=== PATIENT | female | born 2000 | race Caucasian/White ===

== ENCOUNTER 2023-10-17 11:19 | Emergency (ER) | payer BC, SELFPAY ==
[2023-10-17 11:23] VITALS: BP 132/90
--- NOTE | 2023-10-17 12:26 | ED.GENMED ---
History of Present Illness
General
Chief Complaint: Chest Pain
Source: patient
Exam Limitations: none
Time Seen by Provider: 10/17/23 11:55
Nursing documentation reviewed up to this point in time: agreed with
Travel History
Have you had any contact with someone who has COVID-19?: No
Do you have any symptoms of coronavirus? Fever > 100 degrees, chills, cough, shortness of breath, sore throat, loss of taste or smell, muscle aches, or headache?: No
History of Present Illness
History of Present Illness:
23 yr old female presents to the ER for evaluation. She started with cough September 28. Patient reports she was seen in urgent care diagnosed with left lower lobe pneumonia and completed 10 days of antibiotics. She continues to complain of wet
sounding cough that is not productive and now has chest pain across her chest and the right lateral rib area. She complains of shortness of breath with exertion. she was seen again at urgent care and told that the x-rays are unchanged repeat
concern for continued pneumonia or possible PE. No prior history of PE DVT. She is on control. She is a non-smoker.she had neg tests for covid and flu.
Review of Systems
Review of Systems
Allergies reviewed?: Yes
All Other Systems: ROS reviewed and negative except as documented in HPI and ROS
Constitutional: Reports no symptoms; Denies fever, fatigue or chills
EENT: Reports no symptoms
Respiratory: Reports cough and trouble breathing
Cardiac: Reports chest pain; Denies diaphoresis, palpitations or syncope
ABD/GI: Reports no symptoms
Musculoskeletal: Reports no symptoms
Skin: Reports no symptoms
Neurological: Reports no symptoms
Psychiatric: Reports no symptoms
Phy Exam
General Physical Exam
General Presentation: no apparent distress
General age: appears stated age
General Skin: warm and dry
General Habitus: normal
General Mental: alert
General Hydration: appears well hydrated
Cardiovascular Exam
Cardiovascular Exam: regular rate/rhythm, no murmur and normal peripheral pulses
Pulmonary Exam
Pulmonary Exam: lungs clear and no respiratory distress
Neurological Exam
Neurological Exam: alert and oriented x3
Musculoskeletal Exam
Musculoskeletal Exam: full ROM
Skin Exam
Skin Exam: warm/dry
Psychiatric Exam
Psychiatric Exam: normal mood/affect
Scores
Heart Score for Chest Pain Patients
STEMI patient?: Not applicable
Course
Orders/Labs/Results
Orders:
Orders
10/17/23 11:24
EKG [Electrocardiogram (*1)] Urgent
Reason for Study: Chest Pain
EKG- Treatment ONCE
10/17/23 12:33
Test Result ONCE
10/17/23 12:35
Complete Blood Count/With Diff Urgent
Comprehensive Metabolic Panel Urgent
HCG, Serum Qualitative Screen Urgent
10/17/23 12:36
CT Chest Pe Study Urgent
Comment:
Reason For Exam: cp /sob
10/17/23 12:40
0.9% Sodium Chloride 1000 ml [Nss] 1,000 ml IV BOLUS
10/17/23 15:44
Ketorolac [Toradol] 15 mg IV NOW STA
10/17/23 12:35
10/17/23 12:35
Vital Signs
Initial and Last Documented VS:
Initial Vital Signs
Temp Pulse Resp BP Pulse Ox
98.7 F 109 18 132/90 100
10/17/23 11:23 10/17/23 11:23 10/17/23 11:23 10/17/23 11:23 10/17/23 11:23
Last Documented Vital Signs
Temp Pulse Resp BP Pulse Ox
98.7 F 88 18 114/78 98
10/17/23 11:23 10/17/23 13:00 10/17/23 11:23 10/17/23 13:00 10/17/23 13:00
Child Care Sitter consulted with Physician
Child Care Sitter consulted with physician?: Yes
Name of Physician Consulted: [email or web address]
MDM/Problems Addressed
Differential Diagnosis Includes:
not limited to: less likely PE, bronchitis pneumonia viral syndrome
MDM/Problems Addressed:
Patient has had intermittent cough since mid September diagnosed with questionable pneumonia from urgent care completed antibiotics however repeat x-ray at urgent care still with same findings on x-ray. She also has chest discomfort right lateral
rib area anterior chest and has had some shortness of breath. Patient presents awake alert no acute distress afebrile nonhypoxic nontachycardic normal labs. CAT scan was done and is negative for PE does show findings consistent with bronchitis.
There is no evidence to suggest pneumonia. Patient was given IV Toradol here feeling much better. Will DC with Mucinex as needed and inhaler. Patient nontoxic-appearing
*Radiology
Radiology exam reviewed: radiology read reviewed
*Critical Care Note
Total Time (30-74mins, 75-104mins- exclusive of procedures): Not Applicable
ED Attending Note
-
Portions of this chart may have been created with voice recognition software.� Occasional wrong word or��sound alike� substitutions may have occurred due to the inherent limitations of voice recognition software.
Discharge Plan
Departure
Patient Disposition: Home (Routine Discharge)
Date of Disposition: 10/17/23
Time of Disposition: 16:08
Patient with high blood pressure during this ER visit?: Yes
Condition: Fair
Covid-19: Not Applicable
Discharge Problem:
Bronchitis
Instructions: Acute Bronchitis, Adult (DC)
Prescriptions:
New
albuterol sulfate 90 mcg/actuation HFA aerosol inhaler
2 puff inhalation Q6H PRN (Reason: shortness of breath or wheezing) Qty: 8.5 0RF
No Action
acetaminophen 325 MG tablet
650 mg PO Q4HPRN PRN (Reason: mild pain) Qty: 0 0RF
hydrocodone-acetaminophen 1 TABLET tablet
1 tab PO Q4HPRN PRN (Reason: moderate to severe pain) Qty: 10 0RF
polyethylene glycol 3350 17 GRAMS powder in packet
17 grams PO DAILYPRN PRN (Reason: constipation) Qty: 0 0RF
Rx Instructions:
use laxative such as miralax or milk of magnesia if no BM 1-2 days after surgery as long as no nausea/vomiting
ibuprofen 200 MG tablet
400 mg PO Q6HPRN PRN (Reason: mild pain) Qty: 0 0RF
Referrals:
Felipe Smart DO [Family Provider] -
Activity Restrictions/Additional Instructions:
As discussed your labs are unremarkable . Your CAT scan is negative for blood clot. Ct scan does show mild bronchial wall thickening involving both lower lobes suggesting of bronchitis. An inhaler was sent to your pharmacy use as directed every
6 hours as needed. You may try [id number] Mucinex. For discomfort which is likely related to muscle discomfort from coughing, you may try ibuprofen 600 mg every hours with food. Follow-up closely with your family doctor in the next several
days and return if any worsening of symptoms
Interventions
Interventions:
ED- Cardiac Assessment Last Done: 10/17/23 12:39
[2023-10-17 12:34] VITALS: BP 122/87
[2023-10-17 12:51] LABS: % Basophils 0.8 % (0-2); % Eosinophils 3.2 % (0-6); % Immature Granulocytes 0.3 % (0-0.5); % Lymphocytes 21.7 % (20.5-51.1); % Monocytes 8.9 % (1.7-9.3); % Neutrophils 65.1 % (42.2-75.2); Absolute Basophils 0.1 10^3/uL (0-0.2); Absolute Eosinophils 0.2 10^3/uL (0-0.7); Absolute Lymphocytes 1.4 10^3/uL (1.2-3.4); Absolute Monocytes 0.6 10^3/uL (0.1-0.6); Absolute Neutrophils 4.3 10^3/uL (1.4-6.5); Hematocrit 40.1 % (37.0-47.0); Hemoglobin 14.3 g/dL (12.0-16.0); Mean Corp Hgb Conc. 35.7 g/dL (33.0-37.0); Mean Corpuscular Hgb 30.8 pg (27.0-31.0); Mean Corpuscular Volume 86.4 fL (81.0-99.0); Mean Platelet Volume 9.4 fL (7.4-10.4); Nucleated Red Blood Cells % 0 %; Platelet Count 332 10^3/uL (130-400); Red Blood Cell Count 4.64 10^6/uL (4.20-5.40); White Blood Cell Count 6.6 10^3/uL (4.8-10.8)
[2023-10-17] MEDS: NSS 1000 IV (12:52)
[2023-10-17 13:00] VITALS: BP 114/78
[2023-10-17 13:03] LABS: HCG, Serum Qualitative Screen Negative
[2023-10-17 13:06] LABS: ALT (SGPT) 23 U/L (0-35); AST (SGOT) 27 U/L (14-36); Albumin 4.6 g/dl (3.5-5.0); Alkaline Phosphatase 55 U/L (38-126); Blood Urea Nitrogen 15 mg/dl (7-17); Calcium 9.7 mg/dl (8.4-10.2); Carbon Dioxide 25 mmol/L (22-30); Chloride 105 mmol/L (98-107); Glucose 75 mg/dl (70-99); Potassium 4.2 mmol/L (3.5-5.1); Sodium 135 mmol/L (135-145); Total Protein 7.4 g/dl (6.3-8.2); eGFR > 60.00
[2023-10-17] MEDS: TORADOL 15 MG IV (15:52)
== END 2023-10-17 16:21 | disposition home or self-care (01) ==
LOC: EMR 11:19
PROVIDERS: Nurse Practitioner; EMERGENCY PHYSICIAN Emergency Medicine; FAMILY PHYSICIAN Family Medicine
DX: J40 Bronchitis, not specified as acute or chronic (principal); R03.0 Elevated blood-pressure reading, without diagnosis of hypertension
CPT/HCPCS: 99285; 96374; 96361; 71275; 80053; 84703; 85025; 93005; Q9967